=== PATIENT | male | born 1990 | race Two or more races ===

== ENCOUNTER 2022-06-20 21:35 | Emergency (ER) | payer SELFPAY ==
[2022-06-21 00:05] LABS: CARBON DIOXIDE,CO2 30.6 mmol/L (21.0-32.0); POTASSIUM,K 4.3 mmol/L (3.5-5.1)
[2022-06-21] MEDS ORDERED: cefTRIAXone 1 GM in Sodium Chloride 0.9% 50 ML IV ONE (00:07)
[2022-06-21] MEDS ORDERED: Morphine 4 MG/ML VIAL IVPUSH ONE ×2 (01:07→02:31)
[2022-06-21] MEDS ORDERED: Ketorolac 30 MG/ML SDV IVPUSH ONE (01:07)
[2022-06-21] MEDS ORDERED: Acetaminophen 325 MG Tab PO ONE (02:31)
== END 2022-06-21 05:13 ==
LOC: MW.ED 21:35
DX: L08.9 Local infection of the skin and subcutaneous tissue, unspecified (principal); Z20.822 Contact with and (suspected) exposure to COVID-19
CPT/HCPCS: 29125; 36415; 73130; 80053; 85025; 85610; 85652; 85730; 86140; 86850; 86900; 86901; 87040; 87635; 96374; 96375; 96376; 99283; A9270; J0696; J1885; J2270; U0002

== ENCOUNTER 2022-06-22 15:02 | Emergency (ER) | payer SELFPAY | END 2022-06-22 21:51 | disposition home or self-care (01) | LOC: MW.ED 15:02 | DX: L03.90 Cellulitis, unspecified (principal) | CPT/HCPCS: 99283 ==